=== PATIENT | female | born 1995 ===

== ENCOUNTER 2019-10-21 12:34 | Emergency (ER) | payer OTHER ==
--- NOTE | 2019-10-21 13:58 | UC ---
Bite Injury/Animal HPI - HPI Summary HPI Summary: 23 y/o female presents to the urgent care c/o Cat bite right side of neck by her own cat last night. Her cat is UTD w/ all immunizations and is 4 months all. No abnormal behavior noticed. She was hugging her cat and put her on her chest and suddenly she bite her neck. She immediately took a shower and irrigated well wound and apply triple antibiotic oint. She thinks she is UTD w / Tetanus vaccine, but can't recall when was the last dose givne. She declines a booster. She denies fever, pain, drainage. She can move her neck w/o any difficulty. She denies fever, SOB, chest pain, cough URi symptoms, Hx of recent travel, SOB, abdominal pain, muscle pain, N/V/D. - History of Current Complaint Stated Complaint: CAT BITE Time Seen by Provider: 10/21/19 13:54 Hx Obtained From: Patient ?: No Severity Currently: Mild Pain Intensity: 0 Pain Scale Used: 0-10 Numeric Onset/Duration: Sudden Onset, Lasting Days - 1 day, Still Present Type of Bite: Pet - her cat Has Animal Been Immunized?: Yes Character: Abrasion/Laceration - abrasion Aggravating Factor(s): Nothing Alleviating Factor(s): Nothing Associated Signs And Symptoms: Positive: Erythema - mild linear abrasion on RT side of neck. Negative: Fever, Drainage, Swelling, Lymphadenopathy, Numbness/ Tingling, Limited ROM Animal Available for Observation: Yes Animal Control Notified: No - Risk Factors Infection/Sepsis Risk Factors: Negative - Allergies/Home Medications Allergies/Adverse Reactions: Allergies Allergy/AdvReac Type Severity Reaction Status Date / Time No Known Allergies Allergy Verified 10/21/19 14:17 Home Medications: Home Medications Amoxicillin/Clavulanate TAB* [Augmentin TAB 875*] 875 mg PO BID #20 tab [Rx] Bacitracin OINTMENT* 1 applic TOPICAL TID #1 tube 10/21/19 [Rx] PMH/Surg Hx/FS Hx/Imm Hx Previously Healthy: Yes - Pt denies PMHX - Family History Known Family History: Positive: None - Pt denies FMHX - Social History Occupation: Student Lives: With Family - Immunization History Hx Tetanus, Diphtheria Vaccination: Yes - But unsure when was the Tetanus. She declines booster Review of Systems All Other Systems Reviewed And Are Negative: Yes Constitutional: Positive: Negative Skin: Positive: Other - abrasion s/p cat bite on RT side of neck last night Eyes: Positive: Negative ENT: Positive: Negative Respiratory: Positive: Negative Cardiovascular: Positive: Negative Gastrointestinal: Positive: Negative Genitourinary: Positive: Negative Motor: Positive: Negative Neurovascular: Positive: Negative Musculoskeletal: Positive: Negative Neurological/Mental Status: Positive: Negative Psychological: Positive: Negative Is Patient Immunocompromised?: No Physical Exam - Summary Physical Exam Summary: Vital Signs Reviewed: Yes General: well appearing, well nourished female in no acute apparent pain distress, sitting comfortably on examining table Eye Exam: Normal Eyes: Positive: Conjunctiva Clear - PERRLA< EOMI, fundi grossly normal ENT: Positive: Normal ENT inspection, Hearing grossly normal, Pharynx normal, TMs normal Neck: Positive: Supple, Nontender, No Lymphadenopathy Respiratory: Positive: Chest non-tender, Lungs clear, Normal breath sounds, No respiratory distress Cardiovascular: Positive: RRR, No Murmur, Pulses Normal, Brisk Capillary Refill Abdomen Description: Positive: Nontender, No Organomegaly, Soft. Negative: CVA Tenderness (R), CVA Tenderness (L) Bowel Sounds: Positive: Present Musculoskeletal: Positive: Strength Intact, ROM Intact, No Edema Neurological: Positive: Alert, Muscle Tone Normal Psychological Exam: Normal Skin: Positive: RT side of neck over a old scar positive superficial erythematous discrete line about 0.8cm in size, no drainage, non bleeding, no foreign body observed. mild tenderness to palpation, FROM of neck, pulses WNL, capillary refill brisk, sensation WNL. Triage Information Reviewed: Yes Bite Injury Course/Dx - Course Course Of Treatment: 23 y/o female presents to the urgent care c/o Cat bite right side of neck by her own cat last night. Her cat is UTD w/ all immunizations and is 4 months all. No abnormal behavior noticed. She was hugging her cat and put her on her chest and suddenly she bite her neck. She immediately took a shower and irrigated well wound and apply triple antibiotic oint. She thinks she is UTD w / Tetanus vaccine, but can't recall when was the last dose givne. She declines a booster. She denies fever, pain, drainage. She can move her neck w/o any difficulty. She denies fever, SOB, chest pain, cough URi symptoms, Hx of recent travel, SOB, abdominal pain, muscle pain, N/V/D. Hx obtained. Positive: RT side of neck over a old scar positive superficial erythematous line about 0.8cm in size, no drainage, non bleeding, no foreign body observed. mild tenderness to palpation, FROM of neck, on examination. Pt Copious irrigation was done with saline, also w/ iodine and bacitracin ointment applied by me. Wound dressed w/ sterile gauze.The Pt tolerated the procedure well without adverse effects. Neurovascular intact and FROM of neck. Pt declined Dtap booster since she thinks she is UTD w/ vaccine. Pt Rx Augmentin PO and Bacitracin oint as directed below. Pt advised if rash double size and she develops fever despite taken antibiotic to go immediately to the ER for further management. Also highly recommended close observation to cat's behavior and notify the Health department to make sure she doesn't need the rabies prophylactic vaccination. D/C instructions explained. Pt understood and agreed and left the clinic ambulating A&Ox3. - Differential Dx/Diagnosis Differential Diagnosis/HQI/PQRI: Cellulitis, Joint Space Infection, Puncture, Rabies Exposure, Superficial Infection, Deep Space Infection Provider Diagnosis: Cat bite Discharge ED - Sign-Out/Discharge Documenting (check all that apply): Patient Departure - D/C home All imaging exams completed and their final reports reviewed: No Studies - Discharge Plan Condition: Stable Disposition: HOME Prescriptions: Amoxicillin/Clavulanate TAB* [Augmentin TAB 875*] 875 mg PO BID #20 tab Bacitracin OINTMENT* 1 applic TOPICAL TID #1 tube Patient Education Materials: Animal Bite (ED) Referrals: [facility] [place] [facility]ERR[facility] [Outside] - 3 Days Additional Instructions: 1- Please take Augmentin PO as directed. Take yogurts w/ probiotics or culturelle to protect your GI system. Please apply Bacitracin oint over the wound area, 2- Please take Ibuprofen PO q 6 to 8hrs prn after meals for pain and swelling. Please apply Bacitrain oint over wound and keep it clean and dry. 3- Please close observation w/ cat's behavior. Please Contact the health department if you noticed any abnormal behavior on your cat 4- If you develop fever, [place], N/V, abdominal pain, respiratory distress, muscle pain, dizziness or you rash doubles in size despite taking antibiotics please go immediately to the ER the ER for further management - Billing Disposition and Condition Condition: STABLE Disposition: Home
[2019-10-21 14:17] VITALS: BP 113/77
== END 2019-10-21 14:50 | disposition home or self-care (01) ==
LOC: UCEAST 12:34
DX: S10.97XA Other superficial bite of unspecified part of neck, initial encounter (principal); W55.01XA Bitten by cat, initial encounter; Y92.9 Unspecified place or not applicable
CPT/HCPCS: 99202; G0463